=== PATIENT | female | born 1985 | race Caucasian/White ===

== ENCOUNTER 2018-11-18 10:10 | Emergency (ER) | payer MEDICARE, MEDICAID ==
[~2018-11-18] VITALS: Ht 185.4 cm; Wt 128.8 kg
[~2018-11-18 10:10] MED LIST: ATIVAN1 MG PO; BACTRIM DS 8001 TA1 PO; CIPRO500 MG PO; CLINDAMYCIN150 MG PO; CYCLOBENZAPRINE5 M3 PO; DAYPRO600 M1 PO; DOXYCYCLINE MO100 MG PO; EES400 MG PO; FLEXERIL5 MG PO; FLONASE ALLERG9.9 ML NAS; LIDEX 0.05% CRE15 GM T; MACROBID100 M1 PO; MEDROL DOSEPAK4 MG PO; MOTRIN800 MG PO; Motrin,Rufen800 MG PO; NAPROSYN500 MG PO; NKHM; PERCOCET 325 MG1 TA2 PO; PREDNISONE10 MG PO; ROBAXIN750 MG PO; ROBITUSSIN AC 110 ML PO; SEROQUEL50 MG PO; TRAMADOL HCL50 MG PO; ULTRAM50 MG PO; VIBRAMYCIN100 MG PO; VICODIN 5/500 505 MG PO; VICODIN 500 MG-1 TAB PO; XANAX0.5 MG PO; ZITHROMAX Z PA250 MG PO; ZOLOFT100 MG PO
[2018-11-18 10:11] VITALS: BP 104/52
[2018-11-18] MEDS ORDERED: KETOROLAC10 MG PO (11:23)
[2018-11-18] MEDS ORDERED: ULTRAM50 MG PO (11:27)
== END 2018-11-18 11:29 | disposition home or self-care (01) ==
LOC: ED 10:10
DX: M77.32 Calcaneal spur, left foot (principal); M77.31 Calcaneal spur, right foot; M54.5 Low back pain; F17.200 Nicotine dependence, unspecified, uncomplicated; Z88.0 Allergy status to penicillin; Z88.2 Allergy status to sulfonamides; Z88.6 Allergy status to analgesic agent; Z88.1 Allergy status to other antibiotic agents; Z88.8 Allergy status to other drugs, medicaments and biological substances; Z79.2 Long term (current) use of antibiotics; Z79.899 Other long term (current) drug therapy

== ENCOUNTER 2018-12-16 09:31 | Emergency (ER) | payer MEDICARE, MEDICAID ==
[~2018-12-16] VITALS: Wt 131.1 kg
[~2018-12-16 09:31] MED LIST changes: +KETOROLAC10 MG PO
[2018-12-16 09:32] VITALS: BP 125/71
[2018-12-16] MEDS ORDERED: NAPROSYN500 MG PO (10:57)
[2018-12-16] MEDS ORDERED: ROBAXIN-750750 MG PO (10:57)
== END 2018-12-16 11:01 | disposition home or self-care (01) ==
LOC: ED 09:31
DX: S39.012A Strain of muscle, fascia and tendon of lower back, initial encounter (principal); G56.01 Carpal tunnel syndrome, right upper limb; Z79.899 Other long term (current) drug therapy; Z88.0 Allergy status to penicillin; Z88.2 Allergy status to sulfonamides; Z88.1 Allergy status to other antibiotic agents; Z88.8 Allergy status to other drugs, medicaments and biological substances; Z86.718 Personal history of other venous thrombosis and embolism; X58.XXXA Exposure to other specified factors, initial encounter; Y93.G1 Activity, food preparation and clean up; Y92.89 Other specified places as the place of occurrence of the external cause; Y99.8 Other external cause status

== ENCOUNTER 2019-02-03 09:29 | Emergency (ER) | payer MEDICARE ==
[~2019-02-03] VITALS: Ht 182.8 cm; Wt 131.1 kg
[~2019-02-03 09:29] MED LIST changes: +ROBAXIN-750750 MG PO
[2019-02-03 09:34] VITALS: BP 122/80
== END 2019-02-03 10:47 | disposition home or self-care (01) ==
LOC: ED 09:29
DX: S06.0X0A Concussion without loss of consciousness, initial encounter (principal); S33.5XXA Sprain of ligaments of lumbar spine, initial encounter; S60.021A Contusion of right index finger without damage to nail, initial encounter; S00.03XA Contusion of scalp, initial encounter; D17.79 Benign lipomatous neoplasm of other sites; G89.29 Other chronic pain; F17.200 Nicotine dependence, unspecified, uncomplicated; Z79.899 Other long term (current) drug therapy; Z79.2 Long term (current) use of antibiotics; Z88.0 Allergy status to penicillin; Z88.2 Allergy status to sulfonamides; Z88.6 Allergy status to analgesic agent; Z88.1 Allergy status to other antibiotic agents; Z88.8 Allergy status to other drugs, medicaments and biological substances; Z90.710 Acquired absence of both cervix and uterus; Y04.2XXA Assault by strike against or bumped into by another person, initial encounter; Y93.89 Activity, other specified; Y92.090 Kitchen in other non-institutional residence as the place of occurrence of the external cause; Y99.8 Other external cause status

== ENCOUNTER 2019-02-24 08:08 | Emergency (ER) | payer MEDICARE ==
[~2019-02-24] VITALS: Ht 182.8 cm; Wt 128.4 kg
[2019-02-24 08:09] VITALS: BP 108/74
[2019-02-24] MEDS ORDERED: CLINDAMYCIN HC300 MG PO (08:20)
[2019-02-24] MEDS ORDERED: Motrin,Rufen400 MG PO (08:20)
[2019-02-24] MEDS ORDERED: TYLENOL325 M1 PO (08:20)
== END 2019-02-24 08:25 | disposition home or self-care (01) ==
LOC: ED 08:08
DX: K04.7 Periapical abscess without sinus (principal); R19.7 Diarrhea, unspecified; R51 Headache; F17.200 Nicotine dependence, unspecified, uncomplicated; Z79.899 Other long term (current) drug therapy; Z88.0 Allergy status to penicillin; Z88.2 Allergy status to sulfonamides; Z88.1 Allergy status to other antibiotic agents; Z88.8 Allergy status to other drugs, medicaments and biological substances; J45.909 Unspecified asthma, uncomplicated; Z86.718 Personal history of other venous thrombosis and embolism

== ENCOUNTER 2019-02-25 07:28 | Emergency (ER) | payer MEDICARE ==
[~2019-02-25] VITALS: Ht 182.8 cm; Wt 128.4 kg
[~2019-02-25 07:28] MED LIST changes: +CLINDAMYCIN HC300 MG PO; +Motrin,Rufen400 MG PO; +TYLENOL325 M1 PO
[2019-02-25 07:30] VITALS: BP 116/69
[2019-02-25 08:10] LABS: BASO # 0.1 10*3/uL (0.0-0.1); BASO % 0.5 % (0.0-1.0); EOS # 0.3 10*3/uL (0.0-0.4); HEMATOCRIT 45.9 % (37.0-47.0); HEMOGLOBIN 15.3 g/dl (12.0-16.0); LYMPH # 3.7 10*3/uL (1.3-4.4); LYMPH % 28.8 % (27.0-41.0); MEAN CELL VOLUME 98.1 fl (81.0-99.0); MEAN CORPUSCULAR HGB 32.7 pg (27.0-31.0); MEAN CORPUSCULAR HGB CONC 33.3 g/dl (33.0-37.0); MONO # 0.8 10*3/uL (0.1-1.0); NEUT # 8.1 10*3/uL (2.3-7.9); NEUT % 62.5 % (47.0-73.0); PLATELET COUNT AUTOMATED 339 10*3/uL (130-400); RED BLOOD COUNT 4.68 10*6/uL (4.10-5.10); RED CELL DISTRI WIDTH 12.2 % (0-14.5); WHITE BLOOD COUNT 12.9 10*3/uL (4.8-10.8)
[2019-02-25 08:14] LABS: BILIRUBIN NEGATIVE (NEGATIVE); BLOOD NEGATIVE (NEGATIVE); CLARITY SL CLOUDY (CLEAR); COLOR YELLOW (YELLOW); GLUCOSE NEGATIVE (NEGATIVE); KETONE NEGATIVE (NEGATIVE); LEUKO ESTERASE NEGATIVE (NEGATIVE); NITRITE NEGATIVE (NEGATIVE); PH 5.5 (5.0-9.0); SPECIFIC GRAVITY >= 1.030 (1.005-1.030); UROBILINOGEN 0.2 E.U./dl (0.2-1.0)
[2019-02-25 08:24] LABS: URINE AMPHETAMINES < 1000 (1000ng/ml); URINE BARBITURATES < 200 (200ng/ml); URINE BENZODIAZEPINES < 200 (200ng/ml); URINE CANNABINOIDS (THC) > 50 (50ng/ml); URINE COCAINE > 300 (300ng/ml); URINE METHADONE < 300 (300ng/ml); URINE OPIATES < 300 (300ng/ml)
[2019-02-25 08:25] LABS: ALBUMIN 3.5 gm/dl (3.1-4.5); ALKALINE PHOSPHATASE 70 U/L (45-117); BUN 12 mg/dl (7-24); CHLORIDE 113 mmol/L (98-107); CREATININE 0.83 mg/dL (0.55-1.02); POTASSIUM 4.1 mmol/L (3.5-5.1); SGOT/AST 13 IU/L (3-35); SGPT/ALT 28 U/L (12-78); SODIUM 144 mmol/L (136-145); TOTAL PROTEIN 7.2 gm/dL (6.4-8.2)
[2019-02-25 08:29] LABS: ACETAMINOPHEN (TYLENOL) < 5.0 ug/ml (10-30)
[2019-02-25 08:29] LABS: URINE PHENCYCLIDINE < 25 (25ng/ml)
[2019-02-25 08:33] LABS: ACT PARTIAL THROMBO TIME 27.9 SECONDS (20.0-32.1); INTERNATIONAL NORM RATIO 0.9 (2.0-3.5)
== END 2019-02-25 10:14 | disposition home or self-care (01) ==
LOC: ED 07:28
PROVIDERS: Emergency Medicine
DX: K04.7 Periapical abscess without sinus (principal); K02.9 Dental caries, unspecified; H57.89 Other specified disorders of eye and adnexa; R79.1 Abnormal coagulation profile; J45.909 Unspecified asthma, uncomplicated; F17.200 Nicotine dependence, unspecified, uncomplicated; Z88.0 Allergy status to penicillin; Z88.1 Allergy status to other antibiotic agents; Z88.2 Allergy status to sulfonamides; Z88.8 Allergy status to other drugs, medicaments and biological substances; Z79.899 Other long term (current) drug therapy; Z86.718 Personal history of other venous thrombosis and embolism

== ENCOUNTER → 2019-04-19 | Outpatient (CLI) | payer MEDICARE, MEDICAID | END | disposition home or self-care (01) | LOC: MRI 08:50 | DX: M76.829 Posterior tibial tendinitis, unspecified leg (principal); M76.822 Posterior tibial tendinitis, left leg ==

== ENCOUNTER → 2019-05-25 | Outpatient (CLI) | payer MEDICARE | END | disposition home or self-care (01) | LOC: RAD 10:36 | DX: R05 Cough (principal); R06.02 Shortness of breath; Z83.3 Family history of diabetes mellitus; Z72.0 Tobacco use ==

== ENCOUNTER 2019-05-30 09:17 | Emergency (ER) | payer MEDICARE ==
[~2019-05-30] VITALS: Ht 185.4 cm; Wt 119.3 kg
[2019-05-30 09:22] VITALS: BP 117/68
[2019-05-30] MEDS ORDERED: NAPROSYN500 MG PO (09:51)
[2019-05-30] MEDS ORDERED: CLINDAMYCIN HC300 MG PO (09:51)
== END 2019-05-30 09:58 | disposition home or self-care (01) ==
LOC: ED 09:17
DX: K02.9 Dental caries, unspecified (principal); J45.909 Unspecified asthma, uncomplicated; F17.200 Nicotine dependence, unspecified, uncomplicated; Z88.0 Allergy status to penicillin; Z88.2 Allergy status to sulfonamides; Z88.1 Allergy status to other antibiotic agents; Z88.8 Allergy status to other drugs, medicaments and biological substances; Z79.899 Other long term (current) drug therapy

== ENCOUNTER 2019-11-17 15:31 | Emergency (ER) | payer MEDICARE ==
[~2019-11-17] VITALS: Wt 131.1 kg
[2019-11-17 15:37] VITALS: BP 110/64
== END 2019-11-17 18:16 | disposition home or self-care (01) ==
LOC: ED 15:31
DX: R51 Headache (principal); Z88.0 Allergy status to penicillin; Z88.1 Allergy status to other antibiotic agents; Z88.8 Allergy status to other drugs, medicaments and biological substances; Z88.6 Allergy status to analgesic agent; Z79.899 Other long term (current) drug therapy

== ENCOUNTER 2019-11-26 12:01 | Emergency (ER) | payer MEDICARE ==
[~2019-11-26] VITALS: Wt 119.7 kg
[2019-11-26 12:15] VITALS: BP 131/73
[2019-11-26] MEDS ORDERED: CLEOCIN HCL150 MG PO (14:01)
[2019-11-26] MEDS ORDERED: TRAMADOL HCL50 MG PO (14:01)
[2019-11-26] MEDS ORDERED: IBU800 MG PO (14:01)
== END 2019-11-26 14:39 | disposition home or self-care (01) ==
LOC: ED 12:01
DX: K04.7 Periapical abscess without sinus (principal); Z88.0 Allergy status to penicillin; Z88.2 Allergy status to sulfonamides; Z88.1 Allergy status to other antibiotic agents; Z88.8 Allergy status to other drugs, medicaments and biological substances; Z79.899 Other long term (current) drug therapy

== ENCOUNTER 2019-12-21 21:35 | Emergency (ER) | payer MEDICARE ==
[~2019-12-21] VITALS: Ht 185.4 cm; Wt 127.0 kg
[~2019-12-21 21:35] MED LIST changes: +CLEOCIN HCL150 MG PO; +IBU800 MG PO
[2019-12-21 21:41] VITALS: BP 119/66
[2019-12-21] MEDS ORDERED: KEFLEX500 M1 PO (22:40)
[2019-12-21] MEDS ORDERED: MOTRIN 600 MG E4 TAB PO (22:42)
== END 2019-12-22 02:34 | disposition home or self-care (01) ==
LOC: ED 21:35
DX: K04.01 Reversible pulpitis (principal); K02.9 Dental caries, unspecified; K08.89 Other specified disorders of teeth and supporting structures; Z88.0 Allergy status to penicillin; Z88.2 Allergy status to sulfonamides; Z88.8 Allergy status to other drugs, medicaments and biological substances; Z79.899 Other long term (current) drug therapy

== ENCOUNTER → 2020-01-14 | Outpatient (CLI) | payer MEDICARE ==
[~2020-01-14] MED LIST changes: +KEFLEX500 M1 PO; +MOTRIN 600 MG E4 TAB PO
[2020-01-14 09:16] LABS: BASO # 0.1 10*3/uL (0.0-0.1); BASO % 0.6 % (0.0-1.0); EOS # 0.4 10*3/uL (0.0-0.4); EOS % 3.6 % (1.0-4.0); HEMATOCRIT 45.8 % (37.0-47.0); LYMPH # 4.1 10*3/uL (1.3-4.4); LYMPH % 41.3 % (27.0-41.0); MEAN CELL VOLUME 97.7 fl (81.0-99.0); MEAN CORPUSCULAR HGB 32.4 pg (27.0-31.0); MEAN CORPUSCULAR HGB CONC 33.2 g/dl (33.0-37.0); MEAN PLATELET VOLUME 8.7 fl (9.6-12.3); MONO # 0.6 10*3/uL (0.1-1.0); MONO % 6.5 % (3.0-9.0); NEUT # 4.7 10*3/uL (2.3-7.9); NEUT % 47.7 % (47.0-73.0); PLATELET COUNT AUTOMATED 294 10*3/uL (130-400); RED BLOOD COUNT 4.69 10*6/uL (4.10-5.10); RED CELL DISTRI WIDTH 12.8 % (0-14.5); WHITE BLOOD COUNT 9.9 10*3/uL (4.8-10.8)
[2020-01-14 09:35] LABS: ALBUMIN 3.4 gm/dl (3.1-4.5); ALKALINE PHOSPHATASE 75 U/L (45-117); BUN 17 mg/dl (7-24); CHLORIDE 111 mmol/L (98-107); CHOLESTEROL 204 mg/dL (<200); CREATININE 0.71 mg/dL (0.55-1.02); POTASSIUM 4.4 mmol/L (3.5-5.1); SGOT/AST 16 IU/L (3-35); SGPT/ALT 34 U/L (12-78); SODIUM 142 mmol/L (136-145); TOTAL PROTEIN 7.2 gm/dL (6.4-8.2); TRIGLYCERIDES 233 mg/dl (<150); VLDL CHOLESTEROL 47 mg/dL (6-40)
[2020-01-14 09:37] LABS: HDL CHOLESTEROL 44 mg/dl (40-60); LDL CHOLESTEROL 113 mg/dL (9-159)
[2020-01-14 10:18] LABS: VITAMIN D, 25-HYDROXY 26.3 ng/mL (30-100)
== END | disposition home or self-care (01) ==
LOC: MRI 08:00 → LAB 08:02
PROVIDERS: ATTEND Nurse Practitioner Family
DX: H53.8 Other visual disturbances (principal); R93.0 Abnormal findings on diagnostic imaging of skull and head, not elsewhere classified; R59.0 Localized enlarged lymph nodes; R71.8 Other abnormality of red blood cells; D72.829 Elevated white blood cell count, unspecified; E55.9 Vitamin D deficiency, unspecified; E66.09 Other obesity due to excess calories; Z79.899 Other long term (current) drug therapy

== ENCOUNTER → 2020-01-29 | Outpatient (CLI) | payer MEDICARE ==
[2020-01-29 11:07] LABS: URINE AMPHETAMINES < 1000 (1000ng/ml); URINE BARBITURATES < 200 (200ng/ml); URINE BENZODIAZEPINES < 200 (200ng/ml); URINE CANNABINOIDS (THC) > 50 (50ng/ml); URINE COCAINE < 300 (300ng/ml); URINE METHADONE < 300 (300ng/ml); URINE OPIATES < 300 (300ng/ml)
[2020-01-29 11:11] LABS: URINE PHENCYCLIDINE < 25 (25ng/ml)
== END | disposition home or self-care (01) ==
LOC: LAB 10:31
PROVIDERS: ATTEND Registered Nurse Psychiatric/Mental Health
DX: F31.9 Bipolar disorder, unspecified (principal); Z79.899 Other long term (current) drug therapy

== ENCOUNTER → 2020-03-24 | Outpatient (CLI) | payer MEDICARE | END | disposition home or self-care (01) | LOC: CT 02-01 11:00 | PROVIDERS: ATTEND Nurse Practitioner Family | DX: R59.9 Enlarged lymph nodes, unspecified (principal); F17.210 Nicotine dependence, cigarettes, uncomplicated ==

== ENCOUNTER → 2022-05-31 | Outpatient (CLI) | payer OTHER ==
[~2022-05-31] MED LIST changes: +HYDROCODONE-AC1 EACH PO; +PHARMASSURE V500 MCG PO; +VITAMIN D350 MC2 PO
[2022-05-31 11:17] LABS: HEMATOCRIT 44.1 % (37.0-47.0); MEAN CELL VOLUME 98.7 fl (81.0-99.0); MEAN CORPUSCULAR HGB 32.7 pg (27.0-31.0); MEAN CORPUSCULAR HGB CONC 33.1 g/dl (33.0-37.0); MEAN PLATELET VOLUME 8.8 fl (9.6-12.3); RED BLOOD COUNT 4.47 10*6/uL (4.10-5.10); RED CELL DISTRI WIDTH 12.7 % (0-14.5); WHITE BLOOD COUNT 9.9 10*3/uL (4.8-10.8)
[2022-05-31 11:41] LABS: ALKALINE PHOSPHATASE 71 U/L (46-116); BUN 12 mg/dl (9-23); CHLORIDE 109 mmol/L (98-107); CHOLESTEROL 179 mg/dL (<200); LDL CHOLESTEROL 104 mg/dL (9-159); SGPT/ALT 23 U/L (10-49); THYROID STIM HORMONE (HS) 0.752 uIU/ml (0.550-4.780); TRIGLYCERIDES 193 mg/dl (<150)
[2022-05-31 12:17] LABS: VITAMIN D, 25-HYDROXY 16.7 ng/mL (30-100)
[2022-06-01 05:06] LABS: HBSAG Negative (Negative); HEP B CORE AB, IGM Negative (Negative); HEPATITIS C ANTIBODY Non Reactive (Non Reactive)
== END | disposition home or self-care (01) ==
LOC: LAB 10:18
PROVIDERS: ATTEND Family Medicine
DX: J45.909 Unspecified asthma, uncomplicated (principal); E78.00 Pure hypercholesterolemia, unspecified; E55.9 Vitamin D deficiency, unspecified; R53.83 Other fatigue

== ENCOUNTER 2022-06-12 12:00 | Emergency (ER) | payer OTHER ==
[~2022-06-12] VITALS: Ht 185.4 cm; Wt 141.1 kg
[2022-06-12 12:21] VITALS: BP 123/102
[2022-06-12] MEDS ORDERED: NAPROSYN500 MG PO (13:23)
== END 2022-06-12 13:47 | disposition home or self-care (01) ==
LOC: ED 12:00
DX: S83.91XA Sprain of unspecified site of right knee, initial encounter (principal); M79.631 Pain in right forearm; F32.A Depression, unspecified; J45.909 Unspecified asthma, uncomplicated; Z88.0 Allergy status to penicillin; Z88.2 Allergy status to sulfonamides; Z88.5 Allergy status to narcotic agent; Z88.1 Allergy status to other antibiotic agents; Z88.8 Allergy status to other drugs, medicaments and biological substances; Z90.710 Acquired absence of both cervix and uterus; Z98.890 Other specified postprocedural states; Z98.51 Tubal ligation status; F12.10 Cannabis abuse, uncomplicated; F17.200 Nicotine dependence, unspecified, uncomplicated; W01.198A Fall on same level from slipping, tripping and stumbling with subsequent striking against other object, initial encounter; Y93.89 Activity, other specified; Y92.89 Other specified places as the place of occurrence of the external cause; Y99.8 Other external cause status

== ENCOUNTER 2022-07-19 18:15 | Emergency (ER) | payer OTHER ==
[~2022-07-19] VITALS: Ht 185.4 cm; Wt 136.1 kg
[2022-07-19 18:56] LABS: BASO # 0.1 10*3/uL (0.0-0.1); BASO % 0.7 % (0.0-1.0); EOS # 0.4 10*3/uL (0.0-0.4); EOS % 3.1 % (1.0-4.0); HEMATOCRIT 43.9 % (37.0-47.0); LYMPH # 4.8 10*3/uL (1.3-4.4); LYMPH % 36.2 % (27.0-41.0); MEAN CELL VOLUME 96.5 fl (81.0-99.0); MEAN CORPUSCULAR HGB CONC 34.2 g/dl (33.0-37.0); MEAN PLATELET VOLUME 8.7 fl (9.6-12.3); MONO # 0.9 10*3/uL (0.1-1.0); MONO % 6.8 % (3.0-9.0); NEUT # 7.1 10*3/uL (2.3-7.9); NEUT % 52.9 % (47.0-73.0); PLATELET COUNT AUTOMATED 365 10*3/uL (130-400); RED BLOOD COUNT 4.55 10*6/uL (4.10-5.10); RED CELL DISTRI WIDTH 12.8 % (0-14.5); WHITE BLOOD COUNT 13.3 10*3/uL (4.8-10.8)
[2022-07-19] MEDS ORDERED: OMEPRAZOLE40 MG PO (19:09)
[2022-07-19 19:11] LABS: ALKALINE PHOSPHATASE 70 U/L (46-116); BUN 18 mg/dl (9-23); CHLORIDE 110 mmol/L (98-107); LIPASE 39 U/L (12-53); POTASSIUM 3.6 mmol/L (3.4-5.1); SGPT/ALT 24 U/L (10-49); TOTAL PROTEIN 6.8 gm/dL (6.0-8.0)
[2022-07-19 19:29] VITALS: BP 92/50
[2022-07-19 21:24] LABS: BILIRUBIN Negative (Negative); BLOOD Negative (Negative); CLARITY Clear (Clear); COLOR Yellow (Yellow); GLUCOSE Negative (Negative); KETONE Negative (Negative); LEUKO ESTERASE Trace (Negative); NITRITE Negative (Negative); SPECIFIC GRAVITY 1.025 (1.001-1.030); UROBILINOGEN 0.2 E.U./dl (0.0-1.0)
[2022-07-19 21:31] LABS: URINE AMPHETAMINES Negative (1000ng/ml); URINE BARBITURATES Negative (200ng/ml); URINE BENZODIAZEPINES Negative (200ng/ml); URINE CANNABINOIDS (THC) Positive (50ng/ml); URINE COCAINE Positive (300ng/ml); URINE METHADONE Negative (300ng/ml); URINE OPIATES Negative (300ng/ml); URINE PHENCYCLIDINE Negative (25ng/ml)
[2022-07-19 21:32] LABS: BACTERIA 1+
[2022-07-19] MEDS ORDERED: ONDANSETRON4 MG SL (21:45)
[2022-07-19] MEDS ORDERED: PEPCID40 MG PO (21:45)
== END 2022-07-19 22:00 | disposition home or self-care (01) ==
LOC: ED 18:15
PROVIDERS: Emergency Medicine; Family Medicine
DX: R10.12 Left upper quadrant pain (principal); F14.10 Cocaine abuse, uncomplicated; F32.A Depression, unspecified; J45.909 Unspecified asthma, uncomplicated; Z86.718 Personal history of other venous thrombosis and embolism; Z88.0 Allergy status to penicillin; Z88.2 Allergy status to sulfonamides; Z88.6 Allergy status to analgesic agent; Z88.1 Allergy status to other antibiotic agents; Z88.8 Allergy status to other drugs, medicaments and biological substances; Z90.710 Acquired absence of both cervix and uterus; Z98.51 Tubal ligation status; Z98.890 Other specified postprocedural states; F12.10 Cannabis abuse, uncomplicated; F17.200 Nicotine dependence, unspecified, uncomplicated; Z79.899 Other long term (current) drug therapy

== ENCOUNTER 2024-01-31 10:39 | Emergency (ER) | payer OTHER ==
[~2024-01-31] VITALS: Ht 185.4 cm; Wt 132.5 kg
[~2024-01-31 10:39] MED LIST changes: +OMEPRAZOLE40 MG PO; +ONDANSETRON4 MG SL; +PEPCID40 MG PO
[2024-01-31 10:47] VITALS: BP 121/56
[2024-01-31] MEDS ORDERED: Ketorolac Tromethamine 15 MG/ML VIAL IV ONE (11:00)
[2024-01-31] MEDS ORDERED: Ondansetron Hydrochloride 4 MG/2 ML VIAL IV ONE (11:00)
[2024-01-31] MEDS ORDERED: SODIUM CHLORIDE 0.9% 1,000 ML IV ONE (11:00)
[2024-01-31 11:12] LABS: BASO # 0.1 10*3/uL (0.0-0.1); BASO % 0.7 % (0.0-1.0); EOS # 0.3 10*3/uL (0.0-0.4); EOS % 3.2 % (1.0-4.0); HEMATOCRIT 44.6 % (37.0-47.0); LYMPH # 3.6 10*3/uL (1.3-4.4); LYMPH % 42.8 % (27.0-41.0); MEAN CELL VOLUME 97.2 fl (81.0-99.0); MEAN CORPUSCULAR HGB 32.7 pg (27.0-31.0); MEAN CORPUSCULAR HGB CONC 33.6 g/dl (33.0-37.0); MEAN PLATELET VOLUME 8.8 fl (9.6-12.3); MONO # 0.4 10*3/uL (0.1-1.0); MONO % 5.1 % (3.0-9.0); NEUT # 4.1 10*3/uL (2.3-7.9); PLATELET COUNT AUTOMATED 293 10*3/uL (130-400); RED BLOOD COUNT 4.59 10*6/uL (4.10-5.10); RED CELL DISTRI WIDTH 12.1 % (0-14.5); WHITE BLOOD COUNT 8.4 10*3/uL (4.8-10.8)
[2024-01-31 12:03] LABS: BUN 7 mg/dl (9-23); CHLORIDE 110 mmol/L (98-107); POTASSIUM 3.8 mmol/L (3.4-5.1)
[2024-01-31] MEDS ORDERED: Ondansetron4 MG PO (12:34)
[2024-01-31] MEDS ORDERED: NAPROSYN500 MG PO (12:34)
[2024-01-31] MEDS ORDERED: MECLIZINE HCL25 M2 PO (12:34)
== END 2024-01-31 12:54 | disposition home or self-care (01) ==
LOC: ED 10:39
PROVIDERS: Nurse Practitioner Family
DX: R51.9 Headache, unspecified (principal); F32.A Depression, unspecified; F41.9 Anxiety disorder, unspecified; K21.9 Gastro-esophageal reflux disease without esophagitis; Z86.718 Personal history of other venous thrombosis and embolism; F17.200 Nicotine dependence, unspecified, uncomplicated; F12.10 Cannabis abuse, uncomplicated; Z88.0 Allergy status to penicillin; Z88.2 Allergy status to sulfonamides; Z88.6 Allergy status to analgesic agent; Z88.1 Allergy status to other antibiotic agents; Z88.8 Allergy status to other drugs, medicaments and biological substances; Z90.710 Acquired absence of both cervix and uterus; Z98.51 Tubal ligation status; Z98.890 Other specified postprocedural states; Z90.49 Acquired absence of other specified parts of digestive tract

== ENCOUNTER 2024-06-18 16:18 | Emergency (ER) | payer OTHER ==
[~2024-06-18] VITALS: Ht 185.4 cm; Wt 145.1 kg
[~2024-06-18 16:18] MED LIST changes: +MECLIZINE HCL25 M2 PO; +Ondansetron4 MG PO
[2024-06-18 16:35] VITALS: BP 132/78
[2024-06-18] MEDS ORDERED: Ketorolac Tromethamine 30 MG/ML VIAL IM ONE (18:05)
== END 2024-06-18 18:55 | disposition left against medical advice (07) ==
LOC: ED 16:18
DX: S93.409A Sprain of unspecified ligament of unspecified ankle, initial encounter (principal); S80.211A Abrasion, right knee, initial encounter; Z53.29 Procedure and treatment not carried out because of patient's decision for other reasons; F17.200 Nicotine dependence, unspecified, uncomplicated; F12.10 Cannabis abuse, uncomplicated; Z88.0 Allergy status to penicillin; Z88.2 Allergy status to sulfonamides; Z88.6 Allergy status to analgesic agent; Z88.1 Allergy status to other antibiotic agents; Z88.8 Allergy status to other drugs, medicaments and biological substances; Z98.890 Other specified postprocedural states; Z90.710 Acquired absence of both cervix and uterus; Z98.51 Tubal ligation status; W19.XXXA Unspecified fall, initial encounter; Y93.K1 Activity, walking an animal; Y92.89 Other specified places as the place of occurrence of the external cause; Y99.8 Other external cause status

== ENCOUNTER 2024-08-05 14:50 | Emergency (ER) | payer OTHER ==
[~2024-08-05] VITALS: Ht 185.4 cm; Wt 145.1 kg
[2024-08-05 14:56] VITALS: BP 147/52
[2024-08-05] MEDS ORDERED: Tdap Vaccine 0.5 ML SYR (Adult Vaccine) IM ONE (15:15)
== END 2024-08-05 15:33 | disposition home or self-care (01) ==
LOC: ED 14:50
DX: S91.332A Puncture wound without foreign body, left foot, initial encounter (principal); F41.9 Anxiety disorder, unspecified; M79.18 Myalgia, other site; F17.200 Nicotine dependence, unspecified, uncomplicated; F32.A Depression, unspecified; Z88.0 Allergy status to penicillin; Z88.2 Allergy status to sulfonamides; Z88.6 Allergy status to analgesic agent; Z88.1 Allergy status to other antibiotic agents; Z88.8 Allergy status to other drugs, medicaments and biological substances; Z98.890 Other specified postprocedural states; Z90.710 Acquired absence of both cervix and uterus; Z87.42 Personal history of other diseases of the female genital tract; W22.09XA Striking against other stationary object, initial encounter; Y93.89 Activity, other specified; Y92.89 Other specified places as the place of occurrence of the external cause; Y99.8 Other external cause status

== ENCOUNTER 2024-11-14 10:56 | Emergency (ER) | payer OTHER ==
[~2024-11-14] VITALS: Ht 182.8 cm; Wt 131.1 kg
[2024-11-14 11:02] VITALS: BP 132/105
[2024-11-14] MEDS ORDERED: Lidocaine Hydrochloride 2% 10 ML AMP SC ONE (12:20)
== END 2024-11-14 17:36 | disposition home or self-care (01) ==
LOC: ED 10:56
DX: S61.412A Laceration without foreign body of left hand, initial encounter (principal); Z98.890 Other specified postprocedural states; Z90.710 Acquired absence of both cervix and uterus; Z88.0 Allergy status to penicillin; Z88.2 Allergy status to sulfonamides; Z88.1 Allergy status to other antibiotic agents; Z88.8 Allergy status to other drugs, medicaments and biological substances; W45.8XXA Other foreign body or object entering through skin, initial encounter; Y93.K1 Activity, walking an animal; Y92.89 Other specified places as the place of occurrence of the external cause; Y99.8 Other external cause status

== ENCOUNTER 2024-11-28 12:07 | Emergency (ER) | payer OTHER ==
[~2024-11-28] VITALS: Ht 182.8 cm; Wt 131.5 kg
[2024-11-28 12:29] VITALS: BP 99/61
== END 2024-11-28 12:41 | disposition home or self-care (01) ==
LOC: ED 12:07
DX: S61.412D Laceration without foreign body of left hand, subsequent encounter (principal); F17.210 Nicotine dependence, cigarettes, uncomplicated; Z88.0 Allergy status to penicillin; Z88.2 Allergy status to sulfonamides; Z88.8 Allergy status to other drugs, medicaments and biological substances; Z98.890 Other specified postprocedural states; Z90.710 Acquired absence of both cervix and uterus; Z98.51 Tubal ligation status; X58.XXXD Exposure to other specified factors, subsequent encounter